=== PATIENT | male | born 1970 | race Caucasian/White ===

== ENCOUNTER 2017-02-13 18:47 | Emergency (ER) | payer MEDICAID ==
[~2017-02-13] VITALS: Ht 182.9 cm; Wt 91.0 kg
[2017-02-13 18:50] VITALS: BP 144/87; PULSE 93; RESP 12; TEMP 98.6; O2SAT 97
[2017-02-13] MEDS ORDERED: METHOCARBAMOL 500 MG TAB PO ONE (19:15)
[2017-02-13] MEDS ORDERED: GABA300C5 PO (19:18)
[2017-02-13] MEDS ORDERED: TRAZ50TA12 PO (19:18)
[2017-02-13] MEDS ORDERED: VIST25CA PO (19:18)
--- NOTE | 2017-02-13 19:21 | PD ---
HPI Chief Complaint: Back/ Neck Pain or Injury Time Seen by Provider: 19:02 Travel History International Travel<30 days: No Contact w/Intl Traveler<30days: No Traveled to known affect area: No History of Present Illness HPI 46-year-old male presents to the emergency department for evaluation of lower back pain. Patient states that he was arrested one week ago and got into an argument with the police. He was thrown against a van. He has history of chronic back pain with surgery 2 years ago. Patient just got out of skilled nursing today. Patient also complains of mild neck pain. He has history of chronic back pain and neuropathy and takes trazodone, Vistaril, Neurontin. Patient denies any illicit drug use. No fevers or chills per no loss of bowel or bladder control. No saddle anesthesias. Patient also reports history of hiatal hernia that he was recently diagnosed with. [facility] Past Medical History Cardiovascular Problems: Yes (2005) Social History Alcohol Use: Yes Tobacco Use: Yes Substance Use: No Allergies-Medications (Allergen,Severity, Reaction): Coded Allergies: No Known Allergies (Unverified , 02/13/17) Reported Meds & Prescriptions Reported Meds & Active Scripts Active Reported Vistaril (Hydroxyzine Pamoate) 25 Mg Cap 25 Mg PO BID Trazodone (Trazodone HCl) 50 Mg Tab 50 Mg PO HS Gabapentin 300 Mg Cap 300 Mg PO TID Review of Systems Except as stated in HPI: all other systems reviewed are Neg Physical Exam Narrative GENERAL: Well-nourished, well-developed male patient, afebrile. SKIN: Focused skin assessment warm/dry. HEAD: Normocephalic. Atraumatic. EYES: No scleral icterus. No injection or drainage. NECK: Supple, trachea midline. No JVD or lymphadenopathy. CARDIOVASCULAR: Regular rate and rhythm without murmurs, gallops, or rubs. RESPIRATORY: Breath sounds equal bilaterally. No accessory muscle use. Lung sounds are clear to auscultation. GASTROINTESTINAL: Abdomen soft, non-tender, nondistended. MUSCULOSKELETAL: No cyanosis, or edema. BACK: No obvious deformity. No CVA tenderness. Patient has tenderness to palpation over midline lumbar spine. Scar noted. Data Data Last Documented VS Vital Signs Date Time Temp Pulse Resp B/P (MAP) Pulse Ox O2 Delivery O2 Flow Rate FiO2 02/13/17 18:50 98.6 93 12 144/87 (106) 97 Orders Orders Spine, Lumbar - Ltd (Ap & Lat) (02/13/17 ) Methocarbamol (Robaxin) (02/13/17 19:15) MDM Medical Decision Making Medical Screen Exam Complete: Yes Emergency Medical Condition: Yes Medical Record Reviewed: Yes Differential Diagnosis Acute exacerbation of chronic back pain versus muscle strain versus herniated disc versus fracture Narrative Course 46-year-old male presents to the emergency department for evaluation of low back pain after he got into a physical disagreement with the police one week ago. Patient does appear well on exam. X-ray lumbar spine is ordered and pending. Patient is given ibuprofen 600 mg by mouth and Robaxin 500 mg by mouth. X-ray lumbar spine shows degenerative changes throughout the lumbar spine; no acute compression fracture or spondylolisthesis. Patient will be discharged with a prescription for ibuprofen and Robaxin. He is encouraged to follow up with his primary care physician. The patient was discharged in stable condition with instructions, including return instructions and follow up instructions. Diagnosis Primary Impression: Acute exacerbation of chronic low back pain Referrals: Primary Care Physician call for appointment Patient Instructions: Acute Low Back Pain (ED), General Instructions Additional Instructions: Take ibuprofen as instructed as needed with food for pain. Take Robaxin as instructed as needed. Follow-up with your primary care physician. Return to the emergency department for any acute worsening of symptoms. Med/Other Pt SpecificInfo: Prescription(s) given Scripts Methocarbamol (Robaxin) 750 Mg Tab 750 MG PO TID Y for MUSCLE SPASM, #21 TAB 0 Refills Prov: Denisse Ureña 02/13/17 Ibuprofen (Ibuprofen) 600 Mg Tab 600 MG PO TID Y for PAIN SCALE 1 TO 10, #21 TAB 0 Refills Prov: Denisse Ureña 02/13/17 Disposition: 01 DISCHARGE HOME Condition: Stable Denisse Ureña Feb 13, 2017 19:21
--- NOTE | 2017-02-13 20:31 | RADRPT ---
EXAM DATE/TIME: 02/13/2017 20:04 [facility] COMPARISON: No previous studies available for comparison. INDICATIONS : Pain from fall with numbness in left thigh and pain in left posterior hip. MEDICAL HISTORY : None. SURGICAL HISTORY : Unspecified lower back surgery. ENCOUNTER: Initial ACUITY: 1 week PAIN SCORE: 5/10 LOCATION: Lower back. FINDINGS: Degenerative changes are noted throughout the lumbar spine. There is significant disc space narrowin g at L4-5 and L5-S1. There is no acute fracture or spondylolisthesis. CONCLUSION: 1. Degenerative changes throughout the lumbar spine. 2. No acute compression fracture or spondylolisthesis. Oscar Ross MD on February 13, 2017 at 20:09 Board Certified Radiologist. This report was verified electronically.
[2017-02-13] MEDS ORDERED: ROBA750T PO (20:37)
[2017-02-13] MEDS ORDERED: IBUP-232 PO (20:37)
== END 2017-02-13 20:43 | disposition home or self-care (01) ==
LOC: NEPD 18:47
DX: M54.5 Low back pain (principal); G89.29 Other chronic pain; M54.2 Cervicalgia
CPT/HCPCS: 72100; 99283